=== PATIENT | male | born 1990 | race African-American/Black ===

== ENCOUNTER 2018-09-19 22:47 | Emergency (ER) | payer SELFPAY ==
[~2018-09-19] VITALS: Ht 177.8 cm; Wt 64.0 kg
[2018-09-19 23:00] VITALS: BP 117/61
== END 2018-09-20 04:19 | disposition left against medical advice (07) ==
LOC: ER 22:47
DX: R20.2 Paresthesia of skin (principal); Z53.21 Procedure and treatment not carried out due to patient leaving prior to being seen by health care provider